=== PATIENT | female | born 2000 | race Two or more races ===

== ENCOUNTER → 2025-09-05 14:41 | Outpatient (CLI) | payer OTHER | END | disposition home or self-care (01) | LOC: PRENATAL 14:41 | PROVIDERS: ATTEND Obstetrics & Gynecology Maternal & Fetal Medicine | DX: O44.02 Complete placenta previa NOS or without hemorrhage, second trimester (principal); Z14.8 Genetic carrier of other disease; O99.213 Obesity complicating pregnancy, third trimester; Z3A.24 24 weeks gestation of pregnancy ==